=== PATIENT | male | born 1985 | race Caucasian/White ===

== ENCOUNTER 2021-01-13 18:39 | Emergency (ER) | payer SELFPAY ==
--- NOTE | ~2021-01-13 | CT_ITS ---
EXAMINATION: CT abdomen pelvis w con DATE: 01/13/2021 20:51 INDICATION: Right-sided abdominal pain TECHNIQUE: Computed tomography (CT) of the abdomen and pelvis was performed with 100 cc Omnipaque 350 intravenous contrast. Automated exposure control and iterative reconstruction technique were employe d. Exam dose: 1541.92 mGy-cm total exam DLP. COMPARISON: 04/10/2013 gallbladder ultrasound 04/10/2013 CT abdomen pelvis 04/27/2013 radionuclide hepatobiliary scan FINDINGS: Mild primarily peripheral right lower lobe atelectasis. Normal heart size. No pericardial or pleural effusion. Small sliding hiatal hernia. Diffuse hepatic steatosis. No hepatic space-occupying mass lesion. The gallbladder appears unremarkab le. No bile duct or pancreatic duct dilatation. No pancreatic mass lesion or calcification. Normal sp lenic size. Normal morphology of the adrenal glands. Probable 9 mm lower pole left renal probable cyst. The kidneys are otherwise unremarkable. No urinary tract calculus or hydroureteronephrosis. Normal caliber of the abdominal aorta. Small bilateral fat-containing inguinal hernias. There is some subcutaneous fat soft tissue infiltration consistent with inflammation around some asym metrically prominent right inguinal lymph nodes measuring up to 12.5 x 27 mm. 8.5 x 17.7 mm right external iliac lymph node. No periaortic, aortocaval or pelvic lymphadenopathy is noted otherwise. Fat-containing umbilical hernia. Normal appendix. No bowel obstruction, bowel wall thickening, pneumatosis or intraperitoneal free air . Bilateral L5 pars intra-articular is defects with grade 1 anterolisthesis at L5-S1 Severe degenerative disc disease at L5-S1. No suspicious osteolytic or osteoblastic lesions are noted. IMPRESSION: Right inguinal and mild right external iliac lymphadenopathy, subcutaneous right inguina l inflammatory change Hepatic steatosis 9 mm lower pole probable left renal cyst Reviewed, dictated and finalized at [facility] Reviewed, dictated and finalized at [facility] IMPRESSION: Right inguinal and mild right external iliac lymphadenopathy, subc utaneous right inguinal inflammatory change Hepatic steatosis 9 mm lower pole probable left renal cyst
--- NOTE | ~2021-01-13 | XR_ITS ---
XR chest 1V portable DATE: 01/13/2021 19:44 INDICATION: Cough. 102 degrees fever. Right groin pain. TECHNIQUE: Portable AP chest on 01/13/2021 at 1944 hours COMPARISON: 05/09/2017 CT chest 04/03/2016 2 view chest FINDINGS: Normal heart size. No hilar or mediastinal enlargement. No pulmonary infiltrate or consolid ation, pleural effusion or pulmonary vascular congestion or pneumothorax. IMPRESSION: No active cardiopulmonary disease Reviewed, dictated and finalized at [facility].
[2021-01-13 18:40] VITALS: BP 151/94; PULSE 116; RESP 18; TEMP 37.5; O2SAT 99
[2021-01-13 19:40] LABS: Basophils Absolute Auto 0.1 K/mm3 (0.0-0.1); Basophils Percent Auto 0.3 % (0.2-1.2); Eosinophils Percent Auto 0.2 % (0-4.4); Hematocrit 42.3 % (42.0-52.0); Hemoglobin 14.7 g/dL (14.0-18.0); Immature Granulocyte Absolute 0.13 K/mm3 (0.00-0.031); Immature Granulocyte Percent A 0.7 % (0-0.5); Lymphocytes Absolute Auto 1.25 K/mm3 (0.9-3.2); Lymphocytes Percent Auto 6.5 % (18.3-44.2); Mean Corpuscular HGB Conc 34.8 g/dl (32-36); Mean Corpuscular Volume 89.2 fl (80-100); Mean Platelet Volume 8.9 fl (7.4-10.4); Monocytes Absolute Auto 0.9 K/mm3 (0.1-0.6); Monocytes Percent Auto 4.7 % (2.6-8.5); Neutrophils Absolute Auto 16.8 K/mm3 (1.3-6.7); Neutrophils Percent Auto 87.6 % (45.5-73.1); Platelet Count Result 226 k/mm3 (150-375); Red Blood Count 4.74 M/mm3 (4.6-6.20); Red Cell Distribution Width 13.3 % (11.5-14.5); White Blood Count 19.2 K/mm3 (4.5-10.0)
[2021-01-13 19:49] LABS: Alanine Aminotransferase 35 U/L (4-50); Albumin Level 4.1 g/dL (3.5-5.1); Alkaline Phosphatase 63 U/L (38-126); Anion Gap 6 mmol/L (8-16); Aspartate Amino Transferase 44 U/L (17-59); Bilirubin,Total 1.1 mg/dL (0.2-1.3); Blood Urea Nitrogen 12 mg/dL (9-20); Calcium 8.6 mg/dL (8.4-10.2); Carbon Dioxide 25 mmol/L (22-30); Chloride 100 mmol/L (98-107); Estimated CRCL calculation 108 ml/min; Estimated Glomerular Filt Rate > 60; Glucose 120 mg/dL (75-110); Lipase 99 U/L (23-300); Potassium 3.4 mmol/L (3.4-5.0); Sodium 131 mmol/L (137-145)
[2021-01-13 19:50] LABS: Lactic Acid Reflex 1.4 mmol/L (0.7-2.1)
[2021-01-13] MEDS: MORPHINE SULFATE (*CRX) 4 MG/ML INJ IV PUSH (20:09)
[2021-01-13] MEDS: SODIUM CHLORIDE 0.9% IV 1,000 ML 999 ML IV CONT (20:09)
[2021-01-13] MEDS: ONDANSETRON INJ 4 MG/2 ML VIAL IV PUSH (20:10)
--- NOTE | 2021-01-13 20:47 | ED.GENADULT ---
HPI - General Adult General Chief complaint: Fever Stated complaint: abd pian, and fever Time Seen by Provider: 01/13/21 19:09 History of Present Illness HPI narrative: Patient is a 35-year-old gentleman who presents the emergency department with chief complaint of right inguinal pain. The patient states that for the several days has had a fever and has noticed that in the right lower quadrant and right inguinal area he has had pain is worse with movement of his leg. Patient denies scrotal pain denies testicle pain denies fluctuance or erythema. Patient states that he has no history of IV drug use reports that he has no history of diabetes. Patient states that the symptoms are worse with movement and improved with rest. Related Data Allergies Allergy/AdvReac Type Severity Reaction Status Date / Time No Known Allergies Allergy Unknown Verified 01/13/21 18:43 Review of Systems Review of Systems: Narrative: A 10 system review of systems was completed on the patient and is negative except for what is stated in the HPI. Nursing and ancillary documentation was reviewed. [facility] Social History Social History Alcohol intake: current Gender identity (if verbalized by the patient): Male Exam Narrative: Exam Narrative: GENERAL: Well-appearing, well-nourished, and in no acute distress. HEAD: Normocephalic, atraumatic. EYES: PERRLA and EOMI. ENT: Nares clear, no rhinorrhea or epistaxis. Mucous membranes moist. NECK: Supple. CHEST: Clear to auscultation. No respiratory distress. HEART: Regular rate and rhythm. No murmur heard. Normal peripheral pulses. ABDOMEN: Soft, nontender, nondistended, normal active bowel sounds. : There is no tenderness to palpation in the testis there is no erythema of the scrotum EXTREMITIES: Normal range of motion. No edema. There is tenderness to palpation in the right inguinal area. SKIN: Warm, dry, no rash. NEURO: No focal deficits. Alert and oriented x3. PSYCH: Normal mood and affect. Course Vital Signs Vital signs: Vital Signs Temperature 37.5 C 01/13/21 18:40 Pulse Rate 116 H 01/13/21 18:40 Respiratory Rate 18 01/13/21 18:40 Blood Pressure 151/94 H 01/13/21 18:40 Pulse Oximetry 99 01/13/21 18:40 Temperature 37.5 C 01/13/21 18:40 Pulse Rate 83 01/13/21 21:54 Respiratory Rate 18 01/13/21 21:54 Blood Pressure 115/70 01/13/21 21:54 Pulse Oximetry 98 01/13/21 21:54 Medical Decision Making Vital Signs Vital Signs: Vital Signs Temperature 37.5 C 01/13/21 18:40 Pulse Rate 116 H 01/13/21 18:40 Respiratory Rate 18 01/13/21 18:40 Blood Pressure 151/94 H 01/13/21 18:40 Pulse Oximetry 99 01/13/21 18:40 Temperature 37.5 C 01/13/21 18:40 Pulse Rate 83 01/13/21 21:54 Respiratory Rate 18 01/13/21 21:54 Blood Pressure 115/70 01/13/21 21:54 Pulse Oximetry 98 01/13/21 21:54 Lab Data Result diagrams: 01/13/21 19:33 01/13/21 19:33 Labs: Lab Results 01/13/21 01/13/21 01/13/21 Range/Units 19:33 19:33 19:33 WBC 19.2 H (4.5-10.0) K/mm3 RBC 4.74 (4.6-6.20) M/mm3 Hgb 14.7 (14.0-18.0) g/dL Hct 42.3 (42.0-52.0) % MCV 89.2 (80-100) fl MCH 31.0 (26-34) pg MCHC 34.8 (32-36) g/dl RDW 13.3 (11.5-14.5) % Plt Count 226 (150-375) k/mm3 MPV 8.9 (7.4-10.4) fl Immature Gran % (Auto) 0.7 H (0-0.5) % Neut % (Auto) 87.6 H (45.5-73.1) % Lymph % (Auto) 6.5 L (18.3-44.2) % Sebastian % (Auto) 4.7 (2.6-8.5) % Eos % (Auto) 0.2 (0-4.4) % Baso % (Auto) 0.3 (0.2-1.2) % Lymph # (Auto) 1.25 (0.9-3.2) K/mm3 Sebastian # (Auto) 0.9 H (0.1-0.6) K/mm3 Eos # (Auto) 0.0 (0-0.3) K/mm3 Baso # (Auto) 0.1 (0.0-0.1) K/mm3 Abs Immat Gran (auto) 0.13 H (0.00-0.031) K/mm3 Absolute Neuts (auto) 16.8 H (1.3-6.7) K/mm3 Absolute Nucleated RBC 0.0 (0.0-0.012) K/mm3 Nuc
[2021-01-13 21:54] VITALS: BP 115/70; PULSE 83; RESP 18; O2SAT 98
[2021-01-13 22:20] LABS: Add Urine Microscopic? YES; Appearance Urine Clear (Clear); Bacteria Urine Trace /hpf; Bilirubin Urine Negative (Negative); Blood Urine 2+ (Negative); Color Urine Yellow (Yellow); Glucose Urine UA Negative (Negative); Ketones Urine Negative (Negative); Leukocyte Esterase Ur Negative LEU/UL (Negative); Nitrate Urine Negative (Negative); Protein Urine Negative (Negative); RBC Urine 0-2 /hpf (0-2); Specific Grav Ur 1.019 (1.001-1.035); Urobilinogen Urine Negative mg/dL (<2.0); WBC Urine 0-3 /hpf
[2021-01-14 00:22] VITALS: BP 127/72; PULSE 82; RESP 18; O2SAT 98
== END 2021-01-14 00:54 | disposition home or self-care (01) ==
PROVIDERS: Emergency Provider Emergency Medicine
DX: L03.314 Cellulitis of groin (principal)
CPT/HCPCS: 36415; 71045; 74177; 80053; 81001; 83605; 83690; 85025; 96365; 96366; 96375; 99284; J0131; J2270; J2405; J7030; Q9967

== ENCOUNTER 2021-01-15 17:50 | Emergency (ER) | payer SELFPAY ==
[2021-01-15 18:32] VITALS: BP 122/71; RESP 16; TEMP 37; O2SAT 99
[2021-01-15 18:52] LABS: Basophils Absolute Auto 0.1 K/mm3 (0.0-0.1); Basophils Percent Auto 0.3 % (0.2-1.2); Eosinophils Absolute Auto 0.1 K/mm3 (0-0.3); Eosinophils Percent Auto 0.9 % (0-4.4); Hematocrit 42.3 % (42.0-52.0); Hemoglobin 14.5 g/dL (14.0-18.0); Immature Granulocyte Absolute 0.11 K/mm3 (0.00-0.031); Immature Granulocyte Percent A 0.7 % (0-0.5); Lymphocytes Absolute Auto 2.38 K/mm3 (0.9-3.2); Lymphocytes Percent Auto 15.7 % (18.3-44.2); Mean Corpuscular HGB Conc 34.3 g/dl (32-36); Mean Corpuscular Hemoglobin 30.6 pg (26-34); Mean Corpuscular Volume 89.2 fl (80-100); Mean Platelet Volume 9.6 fl (7.4-10.4); Monocytes Absolute Auto 1.1 K/mm3 (0.1-0.6); Neutrophils Absolute Auto 11.5 K/mm3 (1.3-6.7); Neutrophils Percent Auto 75.4 % (45.5-73.1); Platelet Count Result 236 k/mm3 (150-375); Red Blood Count 4.74 M/mm3 (4.6-6.20); Red Cell Distribution Width 13.8 % (11.5-14.5); White Blood Count 15.2 K/mm3 (4.5-10.0)
[2021-01-15 19:02] LABS: Alanine Aminotransferase 62 U/L (4-50); Albumin Level 3.9 g/dL (3.5-5.1); Alkaline Phosphatase 83 U/L (38-126); Anion Gap 3 mmol/L (8-16); Aspartate Amino Transferase 59 U/L (17-59); Blood Urea Nitrogen 10 mg/dL (9-20); Calcium 8.3 mg/dL (8.4-10.2); Carbon Dioxide 33 mmol/L (22-30); Chloride 98 mmol/L (98-107); Estimated CRCL calculation 99 ml/min; Estimated Glomerular Filt Rate > 60; Glucose 122 mg/dL (75-110); Lactic Acid Reflex 1.4 mmol/L (0.7-2.1); Potassium 3.5 mmol/L (3.4-5.0); Sodium 134 mmol/L (137-145)
== END 2021-01-15 22:11 | disposition left against medical advice (07) ==
LOC: ANHED 22:09
PROVIDERS: Emergency Provider Emergency Medicine
DX: L08.9 Local infection of the skin and subcutaneous tissue, unspecified (principal)
CPT/HCPCS: 36415; 80053; 83605; 85025; 87040; 99199

== ENCOUNTER 2024-02-04 05:42 | Emergency (ER) | payer MEDICAID, SELFPAY ==
[2024-02-04 05:44] VITALS: BP 155/133; PULSE 97; RESP 16; TEMP 36.3; O2SAT 98
--- NOTE | 2024-02-04 06:07 | ED.GENADULT ---
HPI - General Adult General Chief complaint: Dental/Oral Stated complaint: infected tooth, top left Time Seen by Provider: 02/04/24 05:52 History of Present Illness HPI narrative: This is a 30-year-old male presenting with dental pain. Patient broke his top left canine about 6 months ago. He started follow up pain in the tooth several days ago. He has not seen a dentist yet Related Data Allergies Allergy/AdvReac Type Severity Reaction Status Date / Time No Known Allergies Allergy Unknown Verified 02/04/24 05:50 [facility] Social History Social History Alcohol intake: current Gender identity (if verbalized by the patient): Male Exam Narrative: APPEARANCE: Patient smells of alcohol and cigarette smoke Head: template canine as fracture the gumline, no swelling or evidence of abscess EYES: EOMI, NOSE: Atraumatic NECK: Trachea midline RESPIRATORY: No increased rate of breathing CARDIOVASCULAR: RRR, ABDOMINAL: Non-distended MUSCULOSKELETAl: No obvious deformities NEURO: Alert. Moving 4/4 extremities SKIN:: Warm, dry. Normal color PSYCHIATRIC: Normal affect Course Vital Signs Vital signs: Vital Signs Temperature 97.4 F L 02/04/24 05:44 Pulse Rate 97 02/04/24 05:44 Respiratory Rate 16 02/04/24 05:44 Blood Pressure 155/133 H 02/04/24 05:44 Pulse Oximetry 98 02/04/24 05:44 Oxygen Delivery Room Air 02/04/24 05:44 Temperature 97.4 F L 02/04/24 05:44 Pulse Rate 97 02/04/24 05:44 Respiratory Rate 16 02/04/24 05:44 Blood Pressure 155/133 H 02/04/24 05:44 Pulse Oximetry 98 02/04/24 05:44 Oxygen Delivery Room Air 02/04/24 05:44 Medical Decision Making [facility] Narrative Medical decision making narrative: -Course: 38-year-old male presenting with dental pain. discussed a plan of care with the patient including a dental block, Motrin Tylenol and Augmentin. While we were obtaining supplies I was informed by nursing staff that he had cussed out the staff and then left the emergency department for not doing anything to help. -DDX includes but is not limited to: Dental fracture, dental caries, dental infection -Shared decision making / Disposition: left after being seen by provider - Vital Signs Vital Signs: Vital Signs Temperature 97.4 F L 02/04/24 05:44 Pulse Rate 97 02/04/24 05:44 Respiratory Rate 16 02/04/24 05:44 Blood Pressure 155/133 H 02/04/24 05:44 Pulse Oximetry 98 02/04/24 05:44 Oxygen Delivery Room Air 02/04/24 05:44 Temperature 97.4 F L 02/04/24 05:44 Pulse Rate 97 02/04/24 05:44 Respiratory Rate 16 02/04/24 05:44 Blood Pressure 155/133 H 02/04/24 05:44 Pulse Oximetry 98 02/04/24 05:44 Oxygen Delivery Room Air 02/04/24 05:44 Discharge Plan Discharge Clinical Impression: Toothache Patient Disposition: Elopement After Seen by Prov Condition: Stable Instructions: Toothache (ED) Additional Instructions: Take Motrin and Tylenol for dental pain. Completed course of antibiotics. Please follow-up with a dentist as soon as possible to repair your teeth. Prescriptions: No Action cephalexin 500 mg tablet 500 mg PO Q6H 7 Days Qty: 28 0RF hydrocodone-acetaminophen 5-325 mg tablet 1 tablet PO Q6H PRN (Reason: pain) 3 Days Qty: 12 0RF doxycycline hyclate 100 mg tablet 100 mg PO BID Qty: 14 0RF Follow-up/Referrals: PHYSICIAN,SMOKEHOUSE OPERATOR [Primary Care Provider] - Stand Alone Forms: Work/School Release IP
--- NOTE | 2024-02-04 06:19 | PC.NURSE ---
This RN was pulling meds when the pt walked out of ED stating You guys aren't going to do anything for me. I could just drink f*cking salt water at home.
== END 2024-02-04 06:23 | disposition left against medical advice (07) ==
PROVIDERS: Emergency Provider Emergency Medicine
DX: K08.89 Other specified disorders of teeth and supporting structures (principal)
CPT/HCPCS: 99281